=== PATIENT | female | born 1970 | race Two or more races ===

== ENCOUNTER 2024-09-06 08:22 | Emergency (ER) | payer MEDICARE, MEDICAID ==
[~2024-09-06] VITALS: Ht 160 cm; Wt 50.0 kg
[2024-09-06 08:24] VITALS: O2SAT 100
[2024-09-06 08:27] VITALS: BP 0/0; RESP 12; TEMP 36.8
[2024-09-06 09:02] VITALS: PULSE 0; O2SAT 0
== END 2024-09-06 11:17 ==
LOC: ER 08:22 → EDSEX 08:22 → ER 11:17
DX: I46.9 Cardiac arrest, cause unspecified (principal); E03.9 Hypothyroidism, unspecified; I49.9 Cardiac arrhythmia, unspecified; Z86.59 Personal history of other mental and behavioral disorders; Z91.010 Allergy to peanuts
CPT/HCPCS: 82962; 92950; 93005; 99285